=== PATIENT | male | born 1980 | race Native Hawaiian/Other Pacific Islander ===

== ENCOUNTER 2017-04-08 18:23 | Emergency (ER) | payer OTHER ==
[~2017-04-08] VITALS: Ht 177.8 cm; Wt 74.8 kg
[2017-04-08 18:25] VITALS: TEMP 97.6
[2017-04-08 21:09] VITALS: BP 148/82
== END 2017-04-08 21:09 | disposition home or self-care (01) ==
LOC: ED 18:23
DX: S80.02XA Contusion of left knee, initial encounter (principal); S80.01XA Contusion of right knee, initial encounter; S90.01XA Contusion of right ankle, initial encounter; S90.31XA Contusion of right foot, initial encounter; V09.20XA Pedestrian injured in traffic accident involving unspecified motor vehicles, initial encounter
CPT/HCPCS: 99283; J1885

== ENCOUNTER 2017-11-04 01:49 | Emergency (ER) | payer OTHER ==
[~2017-11-04] VITALS: Ht 177.8 cm; Wt 80.7 kg
[2017-11-04 02:18] LABS: PLATELET COUNT 303 K/uL (142-355)
[2017-11-04 03:28] VITALS: BP 140/80; TEMP 98.7
== END 2017-11-04 03:31 | disposition home or self-care (01) ==
LOC: ED 01:49
DX: G43.909 Migraine, unspecified, not intractable, without status migrainosus (principal)
CPT/HCPCS: 36415; 85027; 96365; 96374; 96375; 99284; J1100; J1200; J1885; J2405

== ENCOUNTER 2017-12-14 19:53 | Emergency (ER) | payer OTHER ==
[~2017-12-14] VITALS: Ht 177.8 cm; Wt 80.7 kg
[2017-12-14 21:47] VITALS: BP 130/83; TEMP 97.7
== END 2017-12-14 21:55 | disposition home or self-care (01) ==
LOC: ED 19:53
DX: R51 Headache (principal)
CPT/HCPCS: 36415; 96374; 96375; 96376; 99284; J1885; J2405

== ENCOUNTER 2019-02-25 19:09 | Emergency (ER) | payer OTHER ==
[~2019-02-25] VITALS: Ht 177.8 cm; Wt 94.8 kg
[2019-02-25 20:57] VITALS: BP 148/99; TEMP 98.1
== END 2019-02-25 20:57 | disposition home or self-care (01) ==
LOC: ED 19:09
PROC: 0HQMXZZ Repair Right Foot Skin, External Approach (ICD-10-PCS; principal; 2019-02-25)
DX: S81.811A Laceration without foreign body, right lower leg, initial encounter (principal); W25.XXXA Contact with sharp glass, initial encounter; Y93.E9 Activity, other interior property and clothing maintenance; Y92.010 Kitchen of single-family (private) house as the place of occurrence of the external cause
CPT/HCPCS: 90471; 90715; 99283

== ENCOUNTER 2021-04-11 22:27 | Emergency (ER) | payer OTHER ==
[~2021-04-11] VITALS: Ht 177.8 cm; Wt 94.8 kg
[2021-04-12 00:27] VITALS: BP 155/103; TEMP 98.6
== END 2021-04-12 00:28 | disposition home or self-care (01) ==
LOC: ED 22:27
DX: J40 Bronchitis, not specified as acute or chronic (principal); I10 Essential (primary) hypertension; U07.1 COVID-19; F17.210 Nicotine dependence, cigarettes, uncomplicated
CPT/HCPCS: 87635; 96372; 99283; J0696; J1100; U0003

== ENCOUNTER 2021-04-14 10:55 | Emergency (ER) | payer OTHER ==
[~2021-04-14] VITALS: Ht 177.8 cm; Wt 83.0 kg
[2021-04-14 11:51] LABS: PLATELET COUNT 229 K/uL (142-355)
[2021-04-14 12:08] LABS: POTASSIUM 3.8 mmol/L (3.6-5.2)
[2021-04-14 12:45] VITALS: BP 159/93; TEMP 98.5
== END 2021-04-14 12:45 | disposition home or self-care (01) ==
LOC: ED 10:55
PROVIDERS: Hospitalist
DX: J06.9 Acute upper respiratory infection, unspecified (principal); J40 Bronchitis, not specified as acute or chronic; F17.210 Nicotine dependence, cigarettes, uncomplicated
CPT/HCPCS: 80048; 85027; 96372; 99283; J1100; J1885

== ENCOUNTER 2022-01-02 23:33 | Emergency (ER) | payer OTHER ==
[~2022-01-02] VITALS: Ht 177.8 cm; Wt 93.0 kg
[2022-01-03 00:52] LABS: PLATELET COUNT 285 K/uL (142-355)
[2022-01-03 03:30] VITALS: BP 126/72; TEMP 97.8
== END 2022-01-03 03:30 | disposition home or self-care (01) ==
LOC: ED 23:33
PROVIDERS: Emergency Medicine
DX: R10.84 Generalized abdominal pain (principal); F19.10 Other psychoactive substance abuse, uncomplicated
CPT/HCPCS: 36415; 80053; 80307; 81000; 83690; 84484; 85027; 93005; 96374; 99284; J0360

== ENCOUNTER 2022-06-01 23:28 | Emergency (ER) | payer OTHER ==
[~2022-06-01] VITALS: Ht 177.8 cm; Wt 93.0 kg
[2022-06-02 02:05] VITALS: BP 164/98; TEMP 98.5
== END 2022-06-02 02:05 | disposition home or self-care (01) ==
LOC: ED 23:28
DX: S50.02XA Contusion of left elbow, initial encounter (principal); M79.602 Pain in left arm; V68.4XXA Person boarding or alighting a heavy transport vehicle injured in noncollision transport accident, initial encounter; Y92.89 Other specified places as the place of occurrence of the external cause
CPT/HCPCS: 96372; 99283; J1885